=== PATIENT | male | born 1995 | race Caucasian/White ===

== ENCOUNTER 2018-12-09 12:26 | Emergency (ER) | payer MEDICAID ==
[~2018-12-09] VITALS: Ht 182.9 cm; Wt 68.0 kg
[2018-12-09 12:49] VITALS: BP_SYST 125
[2018-12-09] MEDS ORDERED: NACL 0.9% 1,000 ML IV ONE (13:05)
[2018-12-09] MEDS ORDERED: CLINDAMYCIN 900 mg/50mL D5W 50 ML IV ONE (13:15)
[2018-12-09] MEDS ORDERED: NS 1000 ML IV.SOLN IV ONE (13:15)
[2018-12-09] MEDS ORDERED: ONDANSETRON HCL 4 MG/2 ML VIAL IVP ONE (13:15)
[2018-12-09] MEDS ORDERED: IOHEXOL 100 ML IV ONE (13:29)
[2018-12-09 13:47] LABS: HEMATOCRIT 46.6 % (36-54); HEMOGLOBIN 15.4 g/dL (14.0-18.0); MEAN CORPUSCULAR HEMOGLOBIN 28 pg (27-31); MEAN CORPUSCULAR HGB CONC 33 % (32-36); MEAN CORPUSCULAR VOLUME 84 fL (79.0-98.0); RED BLOOD CELL COUNT(AUTO) 5.53 MIL/uL (4.2-6.2); RED CELL DISTRIBUTION WIDTH 13.5 % (9.0-15.0); WHITE BLOOD COUNT (AUTO) 18.3 K/uL (4.8-10.8)
[2018-12-09 13:48] LABS: PLATELET COUNT (AUTO) 347 K/uL (130-430)
[2018-12-09 14:00] LABS: CALCIUM 9.2 mg/dL (8.4-11.0); CREATININE 0.86 mg/dL (0.55-1.30); POTASSIUM 3.6 mmol/L (3.5-5.1)
[2018-12-09 14:05] LABS: ALBUMIN 3.5 g/dL (3.4-4.8); TOTAL BILIRUBIN 0.4 mg/dL (0.0-1.0)
[2018-12-09 14:14] LABS: ATYPICAL LYMPHOCYTES % 2 % (0-0); BAND % (MANUAL) 2 % (0-6); BASOPHILS % (MANUAL) 0 % (0-2); EOSINOPHILS % (MANUAL) 0 % (0-7); LYMPHOCYTES % (MANUAL) 5 % (20-46); MONOCYTES % (MANUAL) 6 % (0-11)
[2018-12-09 14:16] LABS: PROTHROMBIN TIME 10.2 SECS (9.5-12.5)
[2018-12-09] MEDS ORDERED: DEXAMETHASONE SOD PHOSPHATE 10 MG/ML VIAL IVP ONE (14:45)
[2018-12-09 14:57] LABS: BILIRUBIN,URINE NEGATIVE (NEGATIVE); BLOOD, URINE NEGATIVE (NEGATIVE); CLARITY/URINE CLEAR (CLEAR); COLOR,URINE AMBER (YELLOW); GLUCOSE,URINE NEGATIVE (NEGATIVE); KETONES,URINE NEGATIVE (NEGATIVE); LEUKOCYTE ESTERASE ,URINE NEGATIVE (NEGATIVE); NITRITE, URINE NEGATIVE (NEGATIVE); PH,URINE 7.5 (5.0-8.0); PROTEIN URINE 1+ (NEGATIVE)
[2018-12-09 15:06] LABS: BACTERIA,URINE FEW /HPF (None Seen); MUCUS,URINE 1+ /LPF (None Seen); RBC,URINE 0-3 /HPF (0-3); WBC,URINE 0-3 /HPF (0-3)
[2018-12-09 16:39] VITALS: BP_SYST 113
== END 2018-12-09 16:39 | disposition home or self-care (01) ==
LOC: SED 12:26
DX: I88.9 Nonspecific lymphadenitis, unspecified (principal); J02.9 Acute pharyngitis, unspecified; R03.0 Elevated blood-pressure reading, without diagnosis of hypertension; Z88.0 Allergy status to penicillin
CPT/HCPCS: 36415; 70491; 80053; 81000; 83605; 83690; 85007; 85027; 85610; 85730; 86403; 87040; 87081; 96365; 96375; 99284; J1100; J2405; J3490; J7030; Q9967

== ENCOUNTER 2021-09-21 12:56 | Emergency (ER) | payer SELFPAY ==
[~2021-09-21] VITALS: Ht 182.9 cm; Wt 79.4 kg
--- NOTE | 2021-09-21 13:00 | NUR ---
Note carlie in EDM - 09/21/21 at 1900 by [email or web address] Pt brought by self, A&Ox4, pt presents to ER with R lower abdominal pain , N/V since today, skin pink and warm, cap refill <3, VSS, respirations even and unlabored, will cont to monitor.
[2021-09-21 13:55] VITALS: BP_SYST 155
--- NOTE | 2021-09-21 13:55 | NUR ---
Pt brought by partner,A&Ox4,pt presents to ER with skin rash on upper and lower extremities, skin pink and warm, cap refill <3, VSS, respirations even and unlabored.
[2021-09-21 16:00] VITALS: BP_SYST 155
--- NOTE | 2021-09-21 20:29 | NUR ---
CALLED FOR BED PLACEMENT. PATIENT NOT IN WAITING ROOM. PATIENT LEFT WITHOUT BEING SEEN
== END 2021-09-21 20:29 | disposition left against medical advice (07) ==
LOC: SED 12:56
DX: R21 Rash and other nonspecific skin eruption (principal); Z53.21 Procedure and treatment not carried out due to patient leaving prior to being seen by health care provider